=== PATIENT | male | born 1945 | race Caucasian/White ===

== ENCOUNTER → 2020-01-16 | Outpatient (CLI) | payer MEDICARE, OTHER ==
--- NOTE | 2020-01-16 16:48 | CARDNUC ---
[place] [address] CARDIAC NUCLEAR IMAGING REPORT Name: DARCI JUAREZ Room: [employer]#: [id number] Admission: 01/16/20 Attend Phys: Raymond Lund, Discharge: Date of : 43 Date of Service: 01/16/20 1647 Report #: [id number] THIS REPORT FOR: cc: Cindy Harper Cindy RNP Liston, Michael J. MD [facility] ~ APPROVED REPORT Study performed: 01/16/2020 14:39:23 Exam: Nuclear Stress Test Indication: CAD , Dyspnea. Patient Location: Out-Patient Stress Tech: Cindy Richter Stress Nurse: Adilia Gomes R.N. Ht: 5 ft 9 in Wt: 170 lbs BSA: 1.93 m2 BMI: 25.10 Medical History Medical History: ESPINOZA, COPD, Bilateral Lung Cancer Stage 1, Thoracic Aortic Aneurysm, HTN, HLD, DM, Past smoker, Atherosclerosis, Diverticulosis, Hiatal hernia, Renal Stone. Medications: Losartan K+, Atorvastatin, Metformin, ASA 81 Mg. Allergies: NKDA Cardiac Risk Factors: Age, DM, HTN, Hyperlipidemia, SOB/COPD, Past Smoker, thoracic aortic aneurysm. Previous Cardiac Procedures: None Pretest Chest Pain Characteristics: No chest pain Exercise History: Indeterminate Physical Disabilities: COPD, Lung cancer. Meds Held (24 hrs): None Stress Test Details Stress Test: Pharmacologic stress was paired with low level exercise. Reason for pharmacologic stress test: COPD, lung cancer.. HR Resting HR: 72 bpm Max Heart Rate (APMHR): 145 bpm Max HR Achieved: 108 bpm Target HR (85% APMHR): 123 bpm % of APMHR: 74 Recovery HR: [place] [address] CARDIAC NUCLEAR IMAGING REPORT Name: DARCI JUAREZ Room: [employer]#: [id number] Admission: 01/16/20 Attend Phys: Raymond Lund, Discharge: Date of : 43 Date of Service: 01/16/20 1647 Report #: [id number] Resting BP: 180/88 mmHg Max BP: 197/91 mmHg ECG Resting ECG: Sinus Rhythm Stress ECG: Sinus Rhythm ST Change: None Arrhythmia: None Recovery ECG: Sinus Rhythm Recovery ST Change: None Recovery Arrhythmia: None Clinical Reason for Termination: Completed protocol Stress Symptoms: Dyspnea Exercise duration: 4 min 00 sec Exercise capacity: 2.30 METs The patient tolerated Lexiscan infusion without significant cardiac symptoms. Nurse Comments A 74 year old male presented for a walking Lexiscan r/t CAD with HTN and HLD. Test well tolerated. Recovery unremarkable with PO caffeine. Patient was escorted by staff to Nuclear Medicine for imaging. Patient was stable and stated he felt good at that time. Stress ECG Conclusion The baseline twelve-lead EKG shows sinus rhythm without significant ST segment or T wave abnormality. EKGs obtained during and post Lexiscan infusion shows sinus rhythm and sinus tachycardia with no significant ST segment or T wave changes when compared to baseline. There were no stress-induced arrhythmias. NM EXAM: Myocardial Perfusion REST/STRESS Imaging Protocol: Rest Tc-99m/Stress Tc-99m 1 day Resting Data Rest SPECT myocardial perfusion imaging was performed in supine position 30 minutes following the intravenous injection of 11.4 mCi of Tc-99m Sestamibi. Time of rest injection: 13:10 The images were gated to evaluate regional wall motion and calculate left ventricular ejection fraction. Administration Route: [place] [address] CARDIAC NUCLEAR IMAGING REPORT Name: DARCI JUAREZ Room: [employer]#: [id number] Admission: 01/16/20 Attend Phys: Raymond Lund, Discharge: Date of : 43 Date of Service: 01/16/20 1647 Report #: [id number] Administration Site: Right AC Pharmacologic Stress Pharmacologic stress test was performed by injecting Regadenoson 0.4 mg IV push followed by the intravenous injection of 33.8 mCi of Tc-99m Sestamibi. Time of stress injection: 14:35 Administration Route: IV Administration Site: Right AC Heart Rate at time of stress injection: 108 bpm. Gated Stress SPECT was performed 40 minutes after stress injection. The images were gated to evaluate regional wall motion and calculate left ventricular ejection fraction. Prone imaging was performed. Study Quality Study: Good Artifact: Mild Diaphragmatic artifact Study Data At rest, the left ventricular ejection fraction was 63%.. Post stress, the left ventricular ejection was 75%.. TID = 0.89. Perfusion Perfusion images obtained in the supine position at rest and post Lexiscan stress show a moderate region of photopenia involving the inferior wall that resolves completely with post stress prone imaging suggesting diaphragmatic attenuation artifact. There were no other significant fixed or reversible defects identified. Wall Motion Normal left ventricular wall motion. Nuclear Conclusion ECG Findings: negative for ischemia Clinical Findings: negative for ischemia Nuclear Findings: negative for ischemia Exercise Capacity: not assessed Left Ventricular Function: normal Risk Study: low Perfusion images show no defect to suggest infarct or ischemia. Left ventricular systolic function appears normal on gated studies. This [place] [address] CARDIAC NUCLEAR IMAGING REPORT Name: DARCI JUAREZ Room: [facility]#: [id number] Admission: 01/16/20 Attend Phys: Raymond Lund, Discharge: Date of : 43 Date of Service: 01/16/20 1647 Report #: [id number] <Conclusion> The baseline twelve-lead EKG shows sinus rhythm without significant ST segment or T wave abnormality. EKGs obtained during and post Lexiscan infusion shows sinus rhythm and sinus tachycardia with no significant ST segment or T wave changes when compared to baseline. There were no stress-induced arrhythmias. <ELECTRONICALLY SIGNED> By: Raymond Lund MD, FACC 01/16/201646 [id number] Raymond Lund MD, FACC /INF
== END ==
LOC: M.NUC 01-11 14:22
PROVIDERS: ATTEND Internal Medicine Cardiovascular Disease
DX: R00.0 Tachycardia, unspecified (principal); I25.10 Atherosclerotic heart disease of native coronary artery without angina pectoris; R06.00 Dyspnea, unspecified